=== PATIENT | female | born 1945 | race Caucasian/White ===

== ENCOUNTER 2016-08-28 15:18 | Day surgery (SDC) | payer MEDICARE, OTHER ==
[~2016-08-28 15:18] MED LIST: ASPIRIN325 MG PO; CALCIUM600 MG PO; CIPRO500 MG PO; COZAAR100 MG PO; HYDROCODON-ACE1 EAC6 PO; OMEPRAZOLE20 MG PO; PHENERGAN25 M1 PO; PHILLIPS' LAXA100 MG PO; SYNTHROID25 MCG PO; TOPROL XL100 MG PO; VITAMIN D32000 UNI1 PO; ZOCOR20 MG PO; ZOFRAN4 MG PO
== END 2016-08-28 17:00 | disposition home or self-care (01) ==
LOC: SDC 15:18
DX: N13.2 Hydronephrosis with renal and ureteral calculous obstruction (principal); I10 Essential (primary) hypertension; E78.00 Pure hypercholesterolemia, unspecified; K21.9 Gastro-esophageal reflux disease without esophagitis; M19.90 Unspecified osteoarthritis, unspecified site; E07.9 Disorder of thyroid, unspecified; Z90.49 Acquired absence of other specified parts of digestive tract; Z88.2 Allergy status to sulfonamides; Z90.710 Acquired absence of both cervix and uterus; Z87.440 Personal history of urinary (tract) infections
CPT/HCPCS: C1894; C2617; J2550; J2704; Q9967

== ENCOUNTER → 2016-09-10 | Day surgery (SDC) | payer MEDICARE, OTHER | END | disposition home or self-care (01) | LOC: SDC 07:16 | DX: Z46.6 Encounter for fitting and adjustment of urinary device (principal); N20.0 Calculus of kidney; E07.9 Disorder of thyroid, unspecified; I10 Essential (primary) hypertension; M19.90 Unspecified osteoarthritis, unspecified site; Z90.49 Acquired absence of other specified parts of digestive tract; Z88.2 Allergy status to sulfonamides; Z79.899 Other long term (current) drug therapy; Z90.710 Acquired absence of both cervix and uterus; Z87.19 Personal history of other diseases of the digestive system | CPT/HCPCS: C1758; C2617; J1885; J2704; Q9967 ==